=== PATIENT | female | born 2000 | race African-American/Black ===

== ENCOUNTER 2024-07-04 23:58 | Emergency (ER) | payer OTHER ==
[2024-07-05] MEDS ORDERED: NA CHLORIDE 0.9% 1,000 ML ONE (00:43)
[2024-07-05 01:36] LABS: Absolute Eosinophils 0.2 K/uL (0-0.5); Absolute Lymphocytes (CBC) 2.8 K/uL (0.7-4.9); Absolute Monocytes 0.4 K/uL (0.1-1.3); Absolute Neutrophil 4.2 K/uL (1.8-8.0); Basophils % 0.6 % (0-1.3); Eosinophils % 2.9 % (0-4.4); Hematocrit 32.8 % (36.0-45.0); Hemoglobin 10.8 g/dL (12.0-15.0); Lymphocytes % 36.9 % (15.3-44.8); MCH 27.9 pg (27.0-35.0); MCHC 32.9 g/dL (32.0-36.0); MCV 84.9 fL (80-100); MPV 6.9 fL (7.6-11.3); Monocytes % 5.4 % (3.3-12.3); Neutrophils % 54.2 % (41.7-73.7); Platelets 430 thou/uL (152-406); RBC Red Blood Cell Count 3.87 M/uL (3.86-4.86); Specific Gravity 1.028 (1.005-1.030); Sqamous Epithelial <5 /HPF (None Seen); Urine Bacteria None Seen /HPF (<20); Urine Bilirubin NEGATIVE (Negative); Urine Blood 1+ (Negative); Urine Clarity Clear (Clear); Urine Color Light-Yellow (Yellow); Urine Culture Reflex Order NOT NEEDED; Urine Glucose NEGATIVE (Negative); Urine Ketones NEGATIVE (Negative); Urine Microscopic Reflex YN ORDER UMIC; Urine Mucus Slight /HPF (None Seen); Urine Nitrite NEGATIVE (Negative); Urine Protein NEGATIVE (Negative); Urine RBC None Seen /HPF (None Seen); Urine Urobilinogen Normal (Normal); Urine WBC <5 /HPF (<5)
[2024-07-05 01:47] LABS: ALT/SGPT 20 U/L (13-56); AST/SGOT 12 U/L (15-37); Albumin 3.2 g/dL (3.4-5.0); Albumin/Globulin Ratio 0.9 (1.1-1.8); Alkaline Phosphatase 55 U/L (45-117); Anion Gap 8.7 mEq/L (5.0-15.0); BUN Blood Urea Nitrogen 13 mg/dL (7-18); Bicarbonate 26 mEq/L (21-32); Globulin 3.5 g/dL (2.3-3.5); Glomerular Filtration Rate 126 ml/min (=/>90); Glucose Level 92 mg/dL (74-106); Lipase 28 U/L (13-75); Potassium 3.7 mEq/L (3.5-5.1); Protein, Total 6.7 g/dL (6.4-8.2); Sodium Level 138 mEq/L (136-145)
[2024-07-05 01:51] LABS: Bilirubin Total < 0.2 mg/dL (0.2-1.0)
--- NOTE | 2024-07-05 02:54 | RAD REPORT ---
EXAM DESCRIPTION: CT ABDOMEN PELVIS WITH IV CONTRAST 07/05/2024 2:29 AM EXPLOSIVE EXPERT CLINICAL HISTORY: 24 years, Female, Abdominal pain. COMPARISON: None. PROCEDURE: Contrast-enhanced images of the abdomen and pelvis were performed from the lung bases to the ischial tuberosities after the administration of IV contrast. In addition multiplanar reformats in the coronal and sagittal plane were obtained and reviewed. An individualized dose optimization technique, Automated Exposure Control, was utilized for the perfo rmed procedure. FINDINGS: Lung bases: The lung bases demonstrate to be clear. Liver: The liver demonstrates to be normal, no focal lesions identified. Gallbladder: The gallbladder demonstrate to be normal. Adrenal glands: The adrenal glands demonstrate to be normal. Pancreas: The pancreas demonstrate to be normal. Spleen: The spleen demonstrate to be within normal limits. Kidneys: The kidneys demonstrate normal uptake of contrast media. There is no evidence for nephroli thiasis and/or hydronephrosis. GI: Grossly the unopacified stomach, small bowel and large bowel demonstrate to be within normal limi ts. No evidence for bowel dilatation and/or free air. The appendix was not visualized. The left-sided colon demonstrate to be decompressed with no gross abnormalities. : The urinary bladder demonstrate to be partially distended limiting diagnostic value. Genitalia: The uterus demonstrate to be within normal limits. There are normal adnexal structures. Abdominal aorta: The aorta demonstrate to be within normal limits. Retroperitoneum: There is no retroperitoneal lymphadenopathy. There is no evidence for ascites and/or abnormal fluid collections. Bones: The bony structures demonstrate to be within normal limits. No evidence for compression deform ity and/or significant skeletal lesions. Soft tissues: The soft tissues demonstrate to be unremarkable. IMPRESSION: No evidence for nephrolithiasis and/or hydronephrosis. Otherwise unremarkable CT scan of the abdomen and pelvis with contrast. Electronically signed by: Maximus Scott MD 07/05/2024 02:51 AM EXPLOSIVE EXPERT Due to temporary technical issues with the PACS/Clipboard reporting system, reports are being emerald d by the in-house radiologist without review as a courtesy to ensure prompt reporting the interpreting radiologist is fully responsible for the content of the report. Transcribed Date/Time: 07/05/2024 2:54 AM
--- NOTE | 2024-07-05 03:03 | ER ---
Nurse's Notes [facility] Name: Merline Rose Age: 24 yrs Sex: Female : 2000 Arrival Date: 07/04/2024 Time: 23:58 Bed 5 Private MD: Diagnosis: Rectal bleeding Presentation: 07/05 00:13 Chief complaint: Patient states: BLOODY STOOLS SINCE YESTERDAY. BRIGHT RED, CLOTS IN ha1 THE STOOL. HAS BEEN USING [employer] FOR TWO WEEKS. PELVIC CRAMPING. NOT FEELING WELL. 00:13 Coronavirus screen: Client denies travel out of the [place] in the last 14 days. Ebola ha1 Screen: No symptoms or risks identified at this time. Initial Sepsis Screen: Does the patient meet any 2 criteria? No. Patient's initial sepsis screen is negative. Does the patient have a suspected source of infection? No. Patient's initial sepsis screen is negative. Risk Assessment: Do you want to hurt yourself or someone else? Patient reports no desire to harm self or others. Onset of symptoms was July 05, 2024. 00:13 Method Of Arrival: Ambulatory ha1 00:13 Acuity: XENIA 3 ha1 Triage Assessment: 00:13 General: Appears comfortable, Behavior is calm, cooperative. Pain: Complains of pain in ha1 pelvis Pain does not radiate. Pain currently is 6 out of 10 on a pain scale. Quality of pain is described as aching. Neuro: Level of Consciousness is awake, alert, obeys commands, Oriented to person, place, time, situation. Cardiovascular: Capillary refill < 3 seconds Patient's skin is warm and dry. Respiratory: Airway is patent Respiratory effort is even, unlabored, Respiratory pattern is regular, symmetrical. GI: Abdomen is round non-distended, obese, Reports lower abdominal pain, rectal bleeding, bloody stool. : No signs and/or symptoms were reported regarding the genitourinary system. Derm: Skin is healthy with good turgor, Skin is moist, Skin is normal. Musculoskeletal: No signs and/or symptoms reported regarding the musculoskeletal system. Circulation, motion, and sensation intact. Range of motion: intact in all extremities. Historical: - Allergies: 00:37 No Known Allergies; ha1 - PMHx: 00:37 None; ha1 - Immunization history:: Adult Immunizations up to date. - Infectious Disease History:: Denies. - Social history:: Smoking status: Patient reports the use of cigarette tobacco products, smokes one-half pack cigarettes per day. - Family history:: not pertinent. Screenin:39 [facility] ED Fall Risk Assessment (Adult) History of falling in the last 3 months, ha1 including since admission No falls in past 3 months (0 pts) Confusion or Disorientation No (0 pts) Intoxicated or Sedated No (0 pts) Impaired Gait No (0 pts) Mobility Assist Device Used No (0 pt) Altered Elimination No (0 pt) Score/Fall Risk Level 0 - 2 = Low Risk Oriented to surroundings, Maintained a safe environment, Educated pt \T\ family on fall prevention, incl call for assistance when getting out of bed, Hourly rounding (assess needs \T\ fall precautionary measures) done. Abuse screen: Denies threats or abuse. Denies injuries from another. Nutritional screening: No deficits noted. Tuberculosis screening: No symptoms or risk factors identified. Assessment: 00:35 General: Appears in no apparent distress. uncomfortable, Behavior is calm, cooperative, ay appropriate for age. Pain: Complains of pain in abdomen Quality of pain is described as crampy, Pain began 1 day ago. Neuro: Level of Consciousness is awake, alert, obeys commands, Oriented to person, place, time, situation, Speech is normal. Cardiovascular: Capillary refill < 3 seconds. Respiratory: Airway is patent Respiratory effort is even, unlabored, Respiratory pattern is regular, symmetrical. GI: Abdomen is obese, Abd is soft Abdomen is tender to palpation in left lower quadrant Reports bloody stool, Patient currently denies nausea, vomiting. : No signs and/or symptoms were reported regarding the genitourinary system. EENT: No signs and/or symptoms were reported regarding the EENT system. Derm: No signs and/or symptoms reported regarding the dermatologic system. Musculoskeletal: No signs and/or symptoms reported regarding the musculoskeletal system. Vital Signs: 00:13 BP 135 / 100; Pulse 85; Resp 17 S; Temp 98.3(O); Pulse Ox 98% on R/A; Weight 136.08 kg; ha1 03:15 BP 128 / 94; Pulse 80; Resp 17 S; Pulse Ox 100% on R/A; ay Rachelle Coma Score: 00:35 Eye Response: spontaneous(4). Motor Response: obeys commands(6). Verbal Response: ay oriented(5). Total: 15. ED Course: 00:02 Patient arrived in ED. ra3 00:27 Gamaliel Christian MD is Attending Physician. rt 00:34 Alexandra Guerra, RN is Primary Nurse. ay 00:35 Patient has correct armband on for positive identification. Placed in gown. Bed in low ay position. Call light in reach. Side rails up X2. Provided Education on: plan of care. 00:37 Triage completed. ha1 01:01 No provider procedures requiring assistance completed. Initial lab(s) drawn, by betsy sharma sent to lab. Inserted saline lock: 20 gauge in right antecubital area, using aseptic technique. Blood collected. Flushed with 10 mL NS. Patient maintains SpO2 saturation greater than 95% on room air. 02:11 CT Abd/Pelvis - IV Contrast Only In Process Unspecified. EDMS 03:02 Danilo Serna MD is Referral Physician. rt 03:23 IV discontinued, intact, bleeding controlled, No redness/swelling at site. Pressure ay dressing applied. 03:24 Arm band placed on left wrist. ay Administered Medications: 01:01 Drug: NS 0.9% IV 1000 ml IV at 1 bolus Per protocol; to be given as a bolus over 60 bm8 minutes Route: IV; Rate: 1 bolus; Site: right antecubital; 03:32 Follow up: IV Status: Completed infusion; IV Intake: 1000ml ay Medication: 00:35 VIS not applicable for this client. ay Intake: 03:32 IV: 1000ml; Total: 1000ml. ay Outcome: 03:03 Discharge ordered by . rt 03:23 Discharged to home ambulatory, ay 03:23 Condition: stable 03:23 Discharge instructions given to patient, Instructed on discharge instructions, follow up and referral plans. Demonstrated understanding of instructions, follow-up care, 03:31 Patient left the ED. ay Signatures: Dispatcher [employer] EDMS Kylee Barclay, RN RN ha1 Gamaliel Christian MD MD rt Cindy Costa ra3 Jem Kim, RN RAUL bm8 Alexandra Guerra RN RN ay
--- NOTE | 2024-07-05 03:03 | EDPHYS ---
Physician Documentation [facility] Name: Merline Rose Age: 24 yrs Sex: Female : 2000 Arrival Date: 07/04/2024 Time: 23:58 Bed 5 Private MD: ED Physician Gamaliel Christian HPI: 07/05 03:31 This 24 yrs old Black Female presents to ER via Ambulatory with complaints of Bloody rt Stools - with vaginal cramping. 03:31 Patient presents to the ED with reported bright red bloody stools admixed in the stool rt with reported clots. The patient denies significant abdominal pain. Does report small amount of vaginal spotting and pain. Denies other acute complaints, symptoms are moderate in severity, no other aggravating or elevating factors.. Historical: - Allergies: 00:37 No Known Allergies; ha1 - PMHx: 00:37 None; ha1 - Immunization history:: Adult Immunizations up to date. - Infectious Disease History:: Denies. - Social history:: Smoking status: Patient reports the use of cigarette tobacco products, smokes one-half pack cigarettes per day. - Family history:: not pertinent. ROS: 03:31 Constitutional: Negative for fever, chills, and weight loss, Cardiovascular: Negative rt for chest pain, palpitations, and edema, Respiratory: Negative for shortness of breath, cough, wheezing, and pleuritic chest pain, MS/Extremity: Negative for injury and deformity, Skin: Negative for injury, rash, and discoloration, Neuro: Negative for headache, weakness, numbness, tingling, and seizure, 03:31 Abdomen/GI: Positive for rectal bleeding, Negative for nausea and vomiting, Exam: 03:31 Constitutional: This is a well developed, well nourished patient who is awake, alert, rt and in no acute distress. Head/Face: Normocephalic, atraumatic. Chest/axilla: Normal chest wall appearance and motion. Nontender with no deformity. No lesions are appreciated. Cardiovascular: Regular rate and rhythm with a normal S1 and S2. No gallops, murmurs, or rubs. Normal PMI, no JVD. No pulse deficits. Respiratory: Lungs have equal breath sounds bilaterally, clear to auscultation and percussion. No rales, rhonchi or wheezes noted. No increased work of breathing, no retractions or nasal flaring. Abdomen/GI: Soft, non-tender, with normal bowel sounds. No distension or tympany. No guarding or rebound. No evidence of tenderness throughout. MS/ Extremity: Pulses equal, no cyanosis. Neurovascular intact. Full, normal range of motion. Neuro: Awake and alert, GCS 15, oriented to person, place, time, and situation. Cranial nerves II-XII grossly intact. Motor strength 5/5 in all extremities. Sensory grossly intact. Cerebellar exam normal. Normal gait. Vital Signs: 00:13 BP 135 / 100; Pulse 85; Resp 17 S; Temp 98.3(O); Pulse Ox 98% on R/A; Weight 136.08 kg; ha1 03:15 BP 128 / 94; Pulse 80; Resp 17 S; Pulse Ox 100% on R/A; ay [place] Coma Score: 00:35 Eye Response: spontaneous(4). Motor Response: obeys commands(6). Verbal Response: ay oriented(5). Total: 15. MDM: 00:28 Medical Screening Exam initiated rt 03:31 Differential Diagnosis Colitis, diverticulitis, hemorrhoidal bleed. Data reviewed: rt vital signs, nurses notes, lab test result(s), radiologic studies. Consideration of Admission/Observation Escalation of care including admission/observation considered. Stable vital signs, lab work, no signs of upper GI bleed, patient does not require admission at this time, patient to follow-up with GI as an outpatient,, return precautions discussed.. Independent interpretation of the following test(s) in the Emergency Department CT Scan: My interpretation is No diverticulitis seen on interpretation of CT scan images. Care significantly affected by the following chronic conditions:. Counseling: I had a detailed discussion with the patient and/or guardian regarding the historical points, exam findings, and any diagnostic results supporting the discharge/admit diagnosis, lab results, radiology results, the need for outpatient follow up, to return to the emergency department if symptoms worsen or persist or if there are any questions or concerns that arise at home. 07/05 00:34 Order name: CBC with Diff; Complete Time: :52 rt 07/05 00:34 Order name: CMP; Complete Time: :52 rt 07/05 00:34 Order name: Lipase; Complete Time: :52 rt 07/05 00:34 Order name: Test, Urine; Complete Time: 01:52 rt 07/05 00:34 Order name: Urinalysis w/ reflexes; Complete Time: 01:52 rt 07/05 00:34 Order name: CT Abd/Pelvis - IV Contrast Only; Complete Time: 02:56 rt 07/05 00:34 Order name: IV Saline Lock; Complete Time: 01:01 rt 07/05 00:34 Order name: Labs collected and sent; Complete Time: 01:01 rt Administered Medications: 01:01 Drug: NS 0.9% IV 1000 ml IV at 1 bolus Per protocol; to be given as a bolus over 60 bm8 minutes Route: IV; Rate: 1 bolus; Site: right antecubital; 03:32 Follow up: IV Status: Completed infusion; IV Intake: 1000ml ay Disposition Summary: 07/05/24 03:03 Discharge Ordered Notes: Location: Home rt Problem: new rt Symptoms: are unchanged rt Condition: Stable rt Diagnosis - Rectal bleeding rt Followup: rt - With: Danilo Serna MD - When: 2 - 3 days - Reason: Discharge Instructions: - Discharge Summary Sheet rt - Rectal Bleeding rt Forms: - Medication Reconciliation Form rt - Antibiotic Education rt - Prescription Opioid Use rt - Patient Portal Instructions rt - Leadership Thank You Letter rt Signatures: Dispatcher [employer] Kylee Garza, RN RN ha1 Gamaliel Christian MD MD rt Jem Kim RN RN bm8 Alexandra Guerra RN ay
[2024-07-05 03:36] VITALS: TEMP 98.3
[2024-07-05 03:38] VITALS: BP 128/94; O2SAT 100
== END 2024-07-05 03:31 | disposition home or self-care (01) ==
LOC: ER 23:58
DX: K62.5 Hemorrhage of anus and rectum (principal); F17.210 Nicotine dependence, cigarettes, uncomplicated; R10.2 Pelvic and perineal pain; N93.9 Abnormal uterine and vaginal bleeding, unspecified
CPT/HCPCS: 96361; 85025; 81001; 36415; 81025; 83690; 80053; 74177; 96360; 99284; Q9967; J7030

== ENCOUNTER 2024-09-05 15:16 | Emergency (ER) | payer OTHER, SELFPAY ==
[2024-09-05 16:14] LABS: Specific Gravity > 1.030 (1.005-1.030); Sqamous Epithelial <5 /HPF (None Seen); Urine Bacteria <20 /HPF (<20); Urine Bilirubin NEGATIVE (Negative); Urine Blood Negative (Negative); Urine Clarity Clear (Clear); Urine Color Light-Yellow (Yellow); Urine Culture Reflex Order NOT NEEDED; Urine Glucose NEGATIVE (Negative); Urine Ketones NEGATIVE (Negative); Urine Micro Reflex YN NO BILL MICROSCOPIC; Urine Mucus Slight /HPF (None Seen); Urine Nitrite NEGATIVE (Negative); Urine Protein TRACE (Negative); Urine RBC <5 /HPF (None Seen); Urine Urobilinogen Normal (Normal); Urine WBC <5 /HPF (<5)
[2024-09-05 16:16] LABS: Specific Gravity 1.032 (1.005-1.030)
[2024-09-05] MEDS ORDERED: dexAMETHasone 10 MG/ML VIAL ONE (16:52)
[2024-09-05] MEDS ORDERED: KETOROLAC 30 MG/ML INJ ONE (16:52)
--- NOTE | 2024-09-05 17:56 | ER ---
Nurse's Notes [facility] Name: Merline Rose Age: 24 yrs Sex: Female : 2000 Arrival Date: 09/05/2024 Time: 15:16 Bed 5 Private MD: Diagnosis: Lumbago with sciatica, right side Presentation: 09/05 15:33 Chief complaint: Patient states: MIDDLE AND RIGHT LOWER BACK PAIN STARTED YESTERDAY. db FEELS LIKE "PINCHING". STATES WAS WORKING OUT FRIDAY AND THINGS MAY HAVE HURT IT THEN. Coronavirus screen: Client denies travel out of the [place] in the last 14 days. At this time, the client does not indicate any symptoms associated with coronavirus-19. Ebola Screen: Patient negative for fever greater than or equal to 101.5 degrees Fahrenheit, and additional compatible Ebola Virus Disease symptoms Patient denies exposure to infectious person. Patient denies travel to an Ebola-affected area in the 21 days before illness onset. No symptoms or risks identified at this time. Initial Sepsis Screen: Does the patient meet any 2 criteria? No. Patient's initial sepsis screen is negative. Does the patient have a suspected source of infection? No. Patient's initial sepsis screen is negative. Risk Assessment: Do you want to hurt yourself or someone else? Patient reports no desire to harm self or others. Onset of symptoms was September 03, 2024. 15:33 Method Of Arrival: Ambulatory db 15:33 Acuity: XENIA 3 db Triage Assessment: 15:33 General: Appears in no apparent distress. comfortable, Behavior is calm, cooperative. db Pain: Complains of pain in back. Neuro: Level of Consciousness is awake, alert, obeys commands, Oriented to person, place, time, situation. Musculoskeletal: Circulation, motion, and sensation intact. Capillary refill < 3 seconds, Range of motion: intact in all extremities. 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 - Infectious Disease History:: Denies. - Social history:: Smoking status: Patient denies any tobacco usage or history of. Screenin:24 [facility] ED Fall Risk Assessment (Adult) History of falling in the last 3 months, ap3 including since admission No falls in past 3 months (0 pts) Confusion or Disorientation No (0 pts) Intoxicated or Sedated No (0 pts) Impaired Gait No (0 pts) Mobility Assist Device Used No (0 pt) Altered Elimination No (0 pt) Score/Fall Risk Level 0 - 2 = Low Risk Oriented to surroundings, Maintained a safe environment, Educated pt \\T\\ family on fall prevention, incl call for assistance when getting out of bed, Assessed \\T\\ reinforced patient's understanding of fall precautions, Hourly rounding (assess needs \\T\\ fall precautionary measures) done, Used ambulatory aids as needed (educated on \\T\\ assisted with). Abuse screen: Denies threats or abuse. Nutritional screening: No deficits noted. Tuberculosis screening: No symptoms or risk factors identified. Assessment: 16:23 General: Appears uncomfortable, Behavior is calm, cooperative. Pain: Complains of pain ap3 in low back area Pain currently is 6 out of 10 on a pain scale. Pain began 2-3 days ago. Pain: Alleviated by rest, Aggravated by increased activity, repositioning. Neuro: Level of Consciousness is awake, alert, obeys commands, Oriented to person, place, time, situation, Appropriate for age Speech is normal. Cardiovascular: Patient's skin is warm and dry. Respiratory: Airway is patent Respiratory effort is even, unlabored, Respiratory pattern is regular, symmetrical. Musculoskeletal: Reports pain in low back area. Vital Signs: 15:33 BP 134 / 86; Pulse 80; Resp 16; Temp 98.5; Pulse Ox 100% ; Weight 131.54 kg; Height 5 db ft. 5 in. ; 18:11 BP 128 / 74; Pulse 72; Resp 18; Pulse Ox 100% on R/A; ap3 15:33 Body Mass Index 48.26 (131.54 kg, 165.1 cm) db ED Course: 15:18 Patient arrived in ED. al6 15:33 Arm band placed on Patient placed in an exam room. db 15:36 Triage completed. db 15:37 Kishor Hernández RN is Primary Nurse. jl7 15:38 Osito Kaur PA is PHCP. cp 15:38 Osito Ramsey MD is Attending Physician. cp 16:24 Patient has correct armband on for positive identification. Bed in low position. Call ap3 light in reach. 18:11 Provided Education on: discharge instructions. ap3 18:11 No provider procedures requiring assistance completed. Patient did not have IV access ap3 during this emergency room visit. Administered Medications: 16:57 Drug: Dexamethasone IM 10 mg IM once Route: IM; Site: right vastus lateralis; ap3 18:04 Follow up: Response: No adverse reaction; Pain is decreased ap3 16:58 Drug: Ketorolac IM 60 mg IM once Route: IM; Site: right vastus lateralis; ap3 18:04 Follow up: Response: No adverse reaction; Pain is decreased ap3 Medication: 18:12 VIS not applicable for this client. ap3 Outcome: 17:55 Discharge ordered by MD. cp 18:11 Discharged to home ambulatory, ap3 18:11 Condition: good 18:11 Discharge instructions given to patient, Instructed on discharge instructions, follow up and referral plans. medication usage, Demonstrated understanding of instructions, follow-up care, medications, Prescriptions given X 3, 18:12 Patient left the ED. ap3 Signatures: Osito Kaur PA PA cp Leal, Jahala, RN RN jl7 Cornelia Castro RN RN ap3 Salma Lindsey, RN RN db Demi Olvera Corrections: (The following items were deleted from the chart) 15:36 15:33 Chief complaint: Patient states: MIDDLE AND RIGHT LOWER BACK PAIN STARTED db YESTERDAY. FEELS LIKE "PINCHING". STATES WAS WORKING OUT FRIDAY AND THINGS MAY HAVE HURT IT THEN db 15:36 15:33 Pulse 80bpm; Resp 16bpm; Pulse Ox 100%; Temp 98.5F; 131.54 kg; Height 5 ft. 5 db in.; BMI: 48.2; db
--- NOTE | 2024-09-05 17:56 | EDPHYS ---
Physician Documentation [facility] Name: Merline Rose Age: 24 yrs Sex: Female : 2000 Arrival Date: 09/05/2024 Time: 15:16 Bed 5 Private MD: ED Physician Osito Ramsey HPI: 09/05 15:45 This 24 yrs old Black Female presents to ER via Ambulatory with complaints of Back Pain.cp 15:45 The patient presents with pain that is acute. The symptoms are located in the lumbar cp area and right low back and right hip. Onset: The symptoms/episode began/occurred yesterday, and became worse today. The pain radiates to the right buttock and right upper leg. Associated signs and symptoms: The patient has no apparent associated signs or symptoms. The problem was sustained after heavy work out. 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 - Infectious Disease History:: Denies. - Social history:: Smoking status: Patient denies any tobacco usage or history of. ROS: 15:50 Constitutional: Negative for body aches, chills, fever, poor PO intake, cp 15:50 Cardiovascular: Negative for chest pain, palpitations, cp 15:50 Respiratory: Negative for cough, shortness of breath, wheezing, 15:50 Abdomen/GI: Negative for abdominal pain, nausea, vomiting, and diarrhea, constipation, bowel incontinence, 15:50 Back: Positive for pain at rest, pain with movement, of the lumbar area and right low back and right hip, 15:50 : Negative for urinary symptoms, hematuria, difficulty urinating, bladder incontinence, 15:50 Neuro: Negative for altered mental status, dizziness, headache, numbness, weakness, 15:50 All other systems are negative, Exam: 15:55 Constitutional: The patient appears in no acute distress, alert, awake, non-toxic, well cp developed, well nourished, uncomfortable, 15:55 Head/Face: Normocephalic, atraumatic. cp 15:55 Neck: ROM/movement: is normal, is supple, without pain, no range of motions limitations, 15:55 Chest/axilla: Inspection: normal, 15:55 Cardiovascular: Rate: normal, 15:55 Respiratory: the patient does not display signs of respiratory distress, Respirations: normal, no use of accessory muscles, no retractions, labored breathing, is not present, Breath sounds: are clear throughout, no decreased breath sounds, no stridor, no wheezing, 15:55 Abdomen/GI: Inspection: obese Palpation: abdomen is soft and non-tender, in all quadrants, 15:55 Back: pain, that is moderate, of the lumbar area and right low back, ROM is painful, with all movement, 15:55 Neuro: Orientation: to person, place \T\ time. Mentation: is normal, Motor: moves all fours, strength is normal, Sensation: no obvious gross deficits, Gait: is steady, Deep tendon reflexes are 2+ (normal) in the right patellar, right Achilles, left patellar and left Achilles, Vital Signs: 15:33 BP 134 / 86; Pulse 80; Resp 16; Temp 98.5; Pulse Ox 100% ; Weight 131.54 kg; Height 5 db ft. 5 in. ; 18:11 BP 128 / 74; Pulse 72; Resp 18; Pulse Ox 100% on R/A; ap3 15:33 Body Mass Index 48.26 (131.54 kg, 165.1 cm) db MDM: 15:38 Medical Screening Exam initiated cp 17:55 Data reviewed: vital signs, nurses notes, and as a result, I will discharge patient. 17:55 Differential diagnosis: ruptured disc, spinal injury, Ureterolithiasis vertebral cp fracture. I considered the following discharge prescriptions or medication management in the emergency department Medications were administered in the Emergency Department. See MAR. Counseling: I had a detailed discussion with the patient and/or guardian regarding the historical points, exam findings, and any diagnostic results supporting the discharge/admit diagnosis, to return to the emergency department if symptoms worsen or persist or if there are any questions or concerns that arise at home. Response to treatment: the patient's symptoms have mildly improved after treatment, and as a result, I will discharge patient. 09/05 15:39 Order name: Urinalysis W/Microscopic; Complete Time: 16:25 cp 09/05 15:39 Order name: Test, Urine; Complete Time: 16:25 cp Administered Medications: 16:57 Drug: Dexamethasone IM 10 mg IM once Route: IM; Site: right vastus lateralis; ap3 18:04 Follow up: Response: No adverse reaction; Pain is decreased ap3 16:58 Drug: Ketorolac IM 60 mg IM once Route: IM; Site: right vastus lateralis; ap3 18:04 Follow up: Response: No adverse reaction; Pain is decreased ap3 Disposition: 09/06 18:03 Chart complete. cp Disposition Summary: 09/05/24 17:55 Discharge Ordered Notes: Location: Home cp Problem: new cp Symptoms: have improved cp Condition: Stable cp Diagnosis - Lumbago with sciatica, right side cp Followup: cp - With: Private Physician - When: 2 - 3 days - Reason: Recheck today's complaints Discharge Instructions: - Discharge Summary Sheet cp - Acute Back Pain, Adult cp - Sciatica cp - Back Exercises cp - Form - Return To Work cp Forms: - Medication Reconciliation Form cp - Antibiotic Education cp - Prescription Opioid Use cp - Patient Portal Instructions cp - Leadership Thank You Letter cp Prescriptions: - Anaprox DS 550 mg Oral Tablet - take 1 tablet ORAL route every 12 hours As needed; 20 tablet; Refills: 0, cp Product Selection Permitted - Medrol (Jesus Alberto) 4 mg Oral Tablets, Dose Pack - take 1 tablet ORAL route as directed - follow package instructions; 1 packet; cp Refills: 0, Product Selection Permitted - methocarbamol 750 mg Oral tablet - take 1 tablet ORAL route 3 times per day; 30 tablet; Refills: 0, Product cp Selection Permitted Signatures: Dispatcher [employer] Osito Corcoran PA PA cp Cornelia Castro RN RN ap3 Salma Lindsey RN RN db
[2024-09-05 18:37] VITALS: TEMP 98.5; O2SAT 100
[2024-09-05 18:38] VITALS: BP 128/74
== END 2024-09-05 18:12 | disposition home or self-care (01) ==
LOC: ER 15:16
DX: M54.41 Lumbago with sciatica, right side (principal)
CPT/HCPCS: 81001; 81025; 96372; 99284; J1100

== ENCOUNTER 2025-03-19 09:52 | Emergency (ER) | payer OTHER, BC ==
--- OUTSIDE RECORDS SUMMARY | 2025-03-19 09:58 | XMS REPORT | Continuity of Care Document ---
Author Name Unknown Address [address] [facility] [address] [place] [address] [facility] [place] Address [address] [facility] [address] [place] [address] Care Team Providers Care Bench Worker Name Role Phone PCP, PATIENT DOES NOT HAVE A Primary Care Physic ifeanyi Unavailable Austin Bosch Attending Clinician Unavailable Biju Daniel Attending Clinician Unavailable NGUYEN WEST Attending Clinician Unavailab Nguyen Galaviz DO Attending Clinician [phone] FREDDIE PHIPPS Attending Clinician Unavailable Freddie Castellanos Attending Clinician [phone] Lady Townsend Attending Clinician [phone] GC_SEFP_Rivera_A Attending Clinician Unavailable LADY PICHARDO Attending Clinician Unavailable HOLDEN ESQUEDA Attending Clinician Unavaila MUNIRA Gao Attending Clinician Unavailable Lab, Adc Fam Pob I Attending Clinician Unavailab Munira Somers Attending Clinician [phone] Ye Thayer Attending Clinician [phone] Doctor Unassigned, [place] Attending Clinician U navailable Physician, No Primary or Family Admitting Clinic ifeanyi Unavailable GC_SEFP_Rivera_A Admitting Clinician Unavailable Payers Payer Name Policy Type Policy Number Effective Date Expirati on Date Source [facility] [id number] 2021 00:00:00 [facility] [place] [facility] [id number] 2020 00:00:00 [place] [id number] 2020 00:00:00 Problems Condition Name Condition Details Condition Category Status Onset Date Resolution Date Last Treatment Date Treating Clinician Comments Source Boil Boil Disease Active 07-29 00:00: 00 [facility] Well woman exam Well woman exam Disease Active 03-26 00:00: 00 [facility] Encounter for other general counseling or advice on contracept ion Encounter for other general counseling or advice on contracept ion Disease Active 03-26 00:00: 00 [facility] Morbid obesity due to excess calories Morbid obesity due to excess calories Disease Active 03-26 00:00: 00 [facility] History of anxiety History of anxiety Disease Active 03-26 00:00: 00 [facility] History of depression History of depression Disease Active 03-26 00:00: 00 [facility] Allergies, Adverse Reactions, Alerts Allergy Name Allergy Type Status Severity Reaction(s) Onset Date Inactive Date Treating Clinician Comments Source No Known Allergie s DA Active U 07-09 00:00: 00 [facility] NO KNOWN ALLERGIE S Drug Class Active [facility] Social History Social Habit Start Date Stop Date Quantity Comments Source History of tobacco use Cigarette Smoker [facility] Exposure to SARS-CoV-2 (event) 2022-09-17 00:00:00 2022-09-27 11:37:00 Not sure [facility] Alcohol intake 2022-09-27 00:00:00 2022-09-27 00:00:00 Current non-drinker of alcohol (finding) [facility] Cigarettes smoked current (pack per day) - Reported 2022-01-20 00:00:00 2022-01-20 00:00:00 [facility] Tobacco Comment 2022-01-20 00:00:00 2022-01-20 00:00:00 started smoking 1 yr, vapes [facility] Tobacco use and exposure 2022-01-20 00:00:00 2022-01-20 00:00:00 Smokeless tobacco non-user [facility] Sex Assigned At 2000 00:00:00 2000 00:00:00 [facility] Smoking Status Start Date Stop Date Source Smokes tobacco daily 2022-01-20 00:00:00 [facility] Medications Ordered Medication Name Filled Medication Name Start Date Stop Date Current Medication? Ordering Clinician Indication Dosage Frequency Signature (SIG) Comments Components Source ondansetron (ZOFRAN (PF)) injection 4 mg 09-27 19:15: 00 09-27 19:06 :00 No 4mg 4 mg, Slow IV Push, ONCE, 1 dose, [facility] Fri09/27/22 [facility] 1415[facility] NaCl 0.9% (NS) bolus infusion 1,000 mL 09-27 17:45: 00 09-27 19:39 :00 No 1000mL at 999 mL/hr, 1,000 mL, IV Infusion, ONCE, 1 dose, On Fri09/27/22 at 1245, [facility] haloperidol lactate (HALDOL) injection 2.5 mg 09-27 17:00: 00 09-27 17:32 :00 No 2.5mg 2.5 mg, Intravenou s, ONCE, 1 dose, On Fri09/27/22 at 1200, STAT [facility] metoclopram miracle HCl (REGLAN) injection 10 mg 09-27 17:00: 00 09-27 17:32 :00 No 10mg 10 mg, Slow IV Push, ONCE, 1 dose, On Fri09/27/22 at 1200, [facility] ondansetron 4 mg disintegrat ing tablet 09-27 00:00: 00 Yes [id number] 4mg Take 1 tablet by mouth every 8 (eight) hours as needed for Nausea and Vomiting (N/V). [facility] molnupiravi r 200 mg capsule 01-20 00:00: 00 Yes [id number] 800mg Take 4 capsules by mouth every 12 (twelve) hours. [facility] MUCUS DM MAX ER 60-1,200 mg Tb12 11-27 00:00: 00 Yes [facility] ondansetron (ZOFRAN-ODT ) disintegrat ing tablet 4 mg 03-12 04:15: 00 03-12 03:18 :00 No 4mg 4 mg, Oral, ONCE, 1 dose, [facility] 03/11/19 at 2315, Routine [facility] NaCl 0.9% (NS) bolus infusion 1,000 mL 03-12 03:30: 00 03-12 04:18 :00 No 1000mL at 999 mL/hr, 1,000 mL, IV Infusion, ONCE, 1 dose, [facility] 03/11/19 at 2230, STAT [facility] ondansetron (ZOFRAN ODT) 4 mg disintegrat ing tablet 03-11 00:00: 00 Yes [id number] 4mg Take 1 tablet by mouth every 8 (eight) hours as needed for Nausea and Vomiting (N/V). [facility] docusate (COLACE) 100 mg capsule 03-11 00:00: 00 03-22 04:59 :00 No [id number] 100mg Take 1 capsule by mouth 2 (two) times daily for 10 days. [facility] medroxyPROG ESTERone (DEPO-PROVE RA) injection 150 mg 12-17 21:30: 00 11-17 21:29 :00 No [id number] 150mg [facility] DULoxetine 60 mg capsule 12-17 20:49: 27 Yes 60mg Take 60 mg by mouth daily. [facility] busPIRone 5 mg tablet 12-17 20:49: 27 Yes 5mg Take 5 mg by mouth 2 (two) times daily. [facility] TRAZODONE/D IETARY SUPP. NO.8 (TRAZAMINE ORAL) 12-17 20:49: 27 Yes Take by mouth. [facility] DULoxetine 60 mg capsule 12-17 15:49: 27 Yes 60mg Take 60 mg by mouth daily. [facility] busPIRone 5 mg tablet 12-17 15:49: 27 Yes 5mg Take 5 mg by mouth 2 (two) times daily. [facility] TRAZODONE/D IETARY SUPP. NO.8 (TRAZAMINE ORAL) 12-17 15:49: 27 Yes Take by mouth. [facility] Vital Signs Vital Name Observation Time Observation Value Comments Gabbie lafleur Systolic blood pressure 2022-09-27 18:00:00 153 mm[Hg] [facility] Diastolic blood pressure 2022-09-27 18:00:00 93 mm[Hg] [facility] Heart rate 2022-09-27 18:00:00 82 /min [facility] Respiratory rate 2022-09-27 18:00:00 17 /min [facility] Oxygen saturation in Arterial blood by Pulse oximetry 2022-09-27 18:00:00 98 /min [facility] Body temperature 2022-09-27 16:38:00 37.22 Sherice [facility] Body height 2022-09-27 16:38:00 165.1 cm [facility] Body weight 2022-09-27 16:38:00 129.275 kg [facility] BMI 2022-09-27 16:38:00 47.43 kg/m2 [facility] Systolic blood pressure 2022-01-20 20:33:00 138 mm[Hg] [facility] Diastolic blood pressure 2022-01-20 20:33:00 94 mm[Hg] [facility] Heart rate 2022-01-20 20:33:00 82 /min [facility] Body temperature 2022-01-20 20:33:00 36.67 Sherice [facility] Respiratory rate 2022-01-20 20:33:00 18 /min [facility] Body height 2022-01-20 20:33:00 165.1 cm [facility] Body weight 2022-01-20 20:33:00 133.72 kg [facility] BMI 2022-01-20 20:33:00 49.06 kg/m2 [facility] Oxygen saturation in Arterial blood by Pulse oximetry 2022-01-20 20:33:00 98 /min [facility] Systolic blood pressure 2019-03-12 04:00:00 160 mm[Hg] [facility] Diastolic blood pressure 2019-03-12 04:00:00 109 mm[Hg] [facility] Heart rate 2019-03-12 04:00:00 87 /min [facility] Respiratory rate 2019-03-12 04:00:00 17 /min [facility] Oxygen saturation in Arterial blood by Pulse oximetry 2019-03-12 04:00:00 100 /min [facility] Body temperature 2019-03-12 02:57:00 37.17 Sherice [facility] Body height 2019-03-12 02:57:00 165.1 cm [facility] Body weight 2019-03-12 02:57:00 113.399 kg [facility] BMI 2019-03-12 02:57:00 41.60 kg/m2 [facility] Procedures Procedure Date / Time Performed Performing Clinician Source POCT TEST 2022-09-27 17:25:00 Lorin West ra [facility] LIPASE 2022-09-27 17:24:00 [facility] 2022-09-27 17:24:00 Nguyen West [facility] COMP. METABOLIC PANEL ([id number]) 2022-09-27 17:24:00 Nguyen West [facility] CBC WITH DIFF 2022-09-27 17:24:00 [facility] URIN[facility] 2022-09-27 17:24:00 Nguyen West [facility] NOTICE OF PRIVACY PRACTICES 2022-09-27 16:17:39 Doctor Unassigned, [place] [facility] CONSENT/REFUSAL FOR DIAGNOSIS AND TREATMENT 2022-09-27 16:17:08 Doctor Unassigned, [place] [facility] POCT SARS-COV-2 ANTIGEN (BINAX NOW) 2022-01-20 20:45:00 Lady Pichardo [facility] XR ABDOMEN ACUTE SERIES 2019-03-12 03:49:16 Franklin Trotter [facility] LIPASE 2019-03-12 03:24:00 Ye Trotter [facility] COMP. METABOLIC PANEL ([id number]) 2019-03-12 03:24:00 Ye Trotter [facility] CBC WITH DIFFERENTIAL 2019-03-12 03:24:00 Sven Trotter [facility] URINALYSIS 2019-03-12 03:24:00 [facility] POCT TEST 2019-03-12 03:22:00 Ye Trotter [facility] CONSENT/REFUSAL FOR DIAGNOSIS AND TREATMENT 2019-03-12 02:47:43 Doctor Unassigned, [place] [facility] Encounters Start Date/Time End Date/Time Encounter Type Admission Type Attending Clinicians Care Facility Care Department Encounter ID Source 2024-08-23 21:17:00 Inpatient Austin Bosch [facility] [id number] 78 [facility] 2024-07-09 21:15:00 2024-07-09 22:34:00 Emergency EM Biju Daniel [facility] [id number] 11 [facility] 2022-09-27 11:40:00 2022-09-27 15:27:00 Emergency X [facility]EN [facility] E[facility] [id number] [facility] 2022-09-27 11:40:00 2022-09-27 15:27:00 Emergency Nguyen West [facility] [id number] [id number] [id number] [facility] 2022-01-20 15:20:00 2022-01-20 16:07:30 Outpatient FREDDIE KOHLI [facility] [id number] [facility] 2022-01-20 15:20:00 2022-01-20 15:40:00 Urgent Care Freddie Phipps C[facility] 1..840.114 350.1.13.10 4.2.7.2.686 [id number] [facility] 2021-06-30 18:45:00 2021-06-30 18:45:00 Outpatient R LADY PICHARDO [facility] [id number] [facility] 2021-06-06 09:00:00 2021-06-06 09:00:00 Outpatient R YIN PADILLAANNABELLA [facility] [id number] [facility] 2020-09-28 10:20:00 2020-09-28 10:20:00 Outpatient R MUNIRA JEAN [facility] [id number] [facility] 2020-09-22 16:20:00 2020-09-22 16:20:00 Outpatient R [facility] [id number] [facility] 2020-09-13 08:56:13 2020-09-13 09:16:13 Laboratory Only Lab, Adc Fam Pob I Munira Jean Baptiste [facility] [id number] [id number] 4.2.7.2.686 [id number] [facility] 2020-09-13 09:00:00 2020-09-13 09:00:00 Outpatient R MUNIRA JEAN [facility] [id number] [facility] 2019-03-11 22:00:33 2019-03-11 23:22:00 Emergency Ye Trotter [facility] [id number] [id number] 4.2.7.2.686 [id number] [facility] 2019-03-11 00:00:00 2019-03-11 00:00:00 Orders Only Doctor Unassigned, [place] [facility] [id number] 350.1.13.10 4.2.7.2.686 [id number] [facility] 2017-11-07 00:00:00 2017-11-07 00:00:00 Outpatient [facility] [id number] [facility] 2017-08-08 09:36:31 2017-08-08 09:36:31 Outpatient [facility] [id number] [facility] Results Test Description Test Time Test Comments Results Result Co mments Source [facility] MET[facility]OLIC PANEL ([id number])2022-09-27 17:58:55* Test Item Value Reference Range Interpretation Comme nts NA (test code = 2035611533) 140 mmol/L 135-145 K (test code = 5782918069) 4.2 mmol/L 3.5-5.0 CL (test code = 4499417467) 104 mmol/L 98-108 CO2 TOTAL (test code = 9186342549) 28 mmol/L 23-31 AGAP (test code = 6170704377) 8 2-16 BUN (test code = 4151237113) 13 mg/dL 7-23 GLUCOSE (test code = 2437293339) 125 mg/dL 70-110 H CREATININE (test code = 8663047012) 0.66 mg/dL 0.50-1.04 TOTAL BILI (test code = 0315693227) 0.4 mg/dL 0.1-1.1 CALCIUM (test code = 7383479721) 9.1 mg/dL 8.6-10.6 T PROTEIN (test code = 0969663333) 7.5 g/dL 6.3-8.2 ALBUMIN (test code = 7380199029) 4.4 g/dL 3.5-5.0 ALK PHOS (test code = 8797694529) 51 U/L 34-122 ALTv (test code = 1742-6) 27 U/L 5-35 AST(SGOT) (test code = 7302968395) 24 U/L 13-40 eGFR (test code = 2588519414) 112.0 mL/min/1.73m2 JULIO (test code = JULIO) Association of Glomerular Filtration Rate (GFR) and Staging of Kidney Disease* + --+ --+ ------+| GFR (mL/min/1.73 m2) ?| With Kidney Damage ?| ?Without Kidney Damage+ --------+ --------+ +| ?>90 ?| ?Stage one ?| ? Normal ?+ ---+ ---+ -------+| ?60-89 ?| ?Stage two ?| ? Decreased GFR ? + --+ --+ ------+| ?30-59 ?| ?Stage three ?| ? Stage three ? + --+ --+ ------+| ?15-29 ?| ?Stage four ? | ? Stage four ?+ ---+ ---+ -------+| ?<15 (or dialysis) ? ?| ?Stage five ? | ? Stage five ?+ ---+ ---+ -------+ *Each stage assumes the associated GFR level has been in effect for at least three months. ?Stages 1 to 5, with or without kidney disease, indicate chronic kidney disease. Notes: Determination of stages one and two (with eGFR >59mL/min/1.73 m2) requires estimation of kidney damage for at least three months as defined by structural or functional abnormalities of the kidney, manifested by either:Pathological abnormalities or Markers of kidney damage (including abnormalities in the composition of the blood or urine or abnormalities in imaging tests). Lab Interpretation (test code = 89074-7) Abnormal [facility] 17:58:40* Test Item Value Reference Range Interpretation Comme nts LIPASE (test code = 6284953250) 49 U/L 0-220 Lab Interpretation (test cod e = 47422-2) Normal [facility] WITH [id number] 17:45:15* Test Item Value Reference Range Interpretation Comme nts WBC (test code = 6690-2) 7.30 See_Comment [Automated [employer]] The system which generated this result transmitted reference range: 4.30 - 11.10 10*3/?L. The reference range was not used to interpret this result as normal/abnormal. RBC (test code = 789-8) 4.57 See_Comment [Automated [employer]] The system which generated this result transmitted reference range: 3.93 - 5.25 10*6/?L. The reference range was not used to interpret this result as normal/abnormal. HGB (test code = 718-7) 12.8 g/dL 11.6-15.0 HCT (test code = 4544-3) 39.5 % 35.7-45.2 MCV (test code = 787-2) 86.4 fL 80.6-95.5 MCH (test code = 785-6) 28.0 pg 25.9-32.8 MCHC (test code = 786-4) 32.4 g/dL 31.6-35.1 RDW-SD (test code = 71323-2) 41.2 fL 39.0-49.9 RDW-CV (test code = 788-0) 13.2 % 12.0-15.5 PLT (test code = 777-3) 399 See_Comment H [Automated messa ge] The system which generated this result transmitted reference range: 166 - 358 10*3/?L. The reference range was not used to interpret this result as normal/abnormal. MPV (test code = 12451-2) 9.0 fL 9.5-12.9 L NRBC/100 WBC (test code = 3679538722) 0.0 See_Comment [Automated [employer]] The system which generated this result transmitted reference range: 0.0 - 10.0 /100 WBCs. The reference range was not used to interpret this result as normal/abnormal. NRBC x10^3 (test code = 1887157121) See_Comment [Automated [employer]] The system which generated this result transmitted reference range: 10*3/?L. The reference range was not used to interpret this result as normal/abnormal. GRAN MAT (NEUT) % (test code = 770-8) 81.7 % IMM GRAN % (test code = 7034483897) 0.40 % LYMPH % (test code = 736-9) 13.3 % MONO % (test code = 5905-5) 3.8 % EOS % (test code = 713-8) 0.1 % BASO % (test code = 706-2) 0.7 % GRAN MAT x10^3(ANC) (test code = 7271593172) 5.96 10*3/uL 1.88-7.09 IMM GRAN x10^3 (test code = 1058184012) 0.03 10*3/uL 0.00-0.06 LYMPH x10^3 (test code = 731-0) 0.97 10*3/uL 1.32-3.29 L MONO x10^3 (test code = 742-7) 0.28 10*3/uL 0.33-0.92 L EOS x10^3 (test code = 711-2) 0.03-0.39 L BASO x10^3 (test code = 704-7) 0.05 10*3/uL 0.01-0.07 Lab Interpretation (test code = 01759-5) Abnormal [facility] [id number] 17:25:00* Test Item Value Reference Range Interpretation Comme nts POCT PREG (test code = 1605) negative On board controls acceptable with C Line (test code = 3574) present POCT PREG LOT # (test code = 3575) [id number] POCT PREG TEST DATE ( test code = 3576) 07/30/2023 Lab Interpretation (test cod e = 56759-9) Normal [facility] SARS-COV-2 ANTIGEN (BINAX NOW)2022-01-20 20:45:00* Test Item Value Reference Range Interpretation Comme [facility] POCT SARS-COV-2 ANTIGEN (wil t code = 5076) Positive Not Detected A On board controls acceptable with C Line (test code = 3574) Yes Lab Interpretation (test cod e = 67788-2) Abnormal [facility] ABDOMEN ACUTE [id number] 03:58:18No acute abnormalities in the chest or abdomen. A moderate amount of gas and stool in the colon andrectum, which can beseen with constipation. IMelissa MD., have reviewed this study and agree with the abovereport.* * * * * * * * ORIGINAL REPORT * * * * * * * *EXAM: XR ABDOMEN ACUTE SERIES HISTORY: Constipation with nausea and vomiting COMPARISON: None. FINDINGS: The lungs are clear. No pleural effusion or pneumothorax is identified. Theheart is normal in size. No subdiaphragmatic free air is identified on the upright view. The bowelgas pattern is normal. A moderate amount of gas and stool are seen in thecolon and rectum. No calcified stones or opaque masses are seen. The osseous structures areunremarkable. [facility], Radiant Results Inft User - 03/11/2019 10:58 PM CDT* * * * * * * * ORIGINAL REPORT * * * * * * * *EXAM: XR ABDOMEN ACUTE SERIESHISTORY: Constipation with nausea and vomiting COMPARISON: None.FINDINGS:The lungs are clear. No pleural effusion or pneumothorax is identified. Theheart is normal in size. No subdiaphragmatic free air is identified on the upright view. The bow elgas pattern is normal. A moderate amount of gas and stool are seen in thecolon and rectum.No calcified stones or opaque masses are seen. The osseous structures areunremarkable. IMPRESSIONNo acute abnormalities in the chest or abdomen.A moderate amount of gas and stool in the colon and rectum, which can beseen with constipation.I, Sophia Mart MD., have reviewed this study and agree with the abovereport.[facility]. METABOLIC PANEL (46875) 2019-03-12 03:53:00* Test Item Value Reference Range Interpretation Comme nts NA (test code = 8691390302) 143 mmol/L 135-145 K (test code = 2709206233) 3.4 mmol/L 3.5-5 L CL (test code = 9916135405) 104 mmol/L 98-108 CO2 TOTAL (test code = 4803518503) 27 mmol/L 23-31 AGAP (test code = 4547863960) 2-16 BUN (test code = 5518664588) 13 mg/dL 7-23 GLUCOSE (test code = 6041805957) 115 mg/dL 70-110 H CREATININE (test code = 3315460374) 0.66 mg/dL 0.5-1.04 TOTAL BILI (test code = 2359403784) 0.5 mg/dL 0.1-1.1 CALCIUM (test code = 7996718402) 9.4 mg/dL 8.6-10.6 T PROTEIN (test code = 2187750955) 8.3 g/dL 6.3-8.2 H ALBUMIN (test code = 1102498515) 4.7 g/dL 3.5-5 ALK PHOS (test code = 0310342891) 56 U/L 34-122 ALT(SGPT) (test code = 0208841378) 22 U/L 9-51 AST(SGOT) (test code = 0613432706) 44 U/L 13-40 H eGFR Calculation (Non-) (test code = 9002562567) mL/min/1.73m2 eGFR Calculation () (test code = 5409968101) mL/min/1.73m2 JULIO (test code = JULIO) Association of Glomerular Filtration Rate (GFR) and Staging of Kidney Disease*+ + + +| GFR (mL/min/1.73 m2)?| With Kidney Damage?|?Without Kidney Damage+ --------+ --------+ +|?>90?|?S tage one?|? Normal?+ ---------+ ---------+ +|?60-89? |?Stage two?|? Decreased GFR? + --+ --+ ------+|?30-59?|?Stage three?|? Stage three? + --+ --+ ------+|?15-29?|?Stage four? |? Stage four?+ -------+ -------+ +|?<15 (or dialysis)?|?Stage five? |? Stage five?+ -------+ -------+ +*Each stage assumes the associated GFR level has been in effect for at least three months.?Stages 1 to 5, with or without kidney disease, indicate chronic kidney disease.Notes: Determination of stages one and two (with eGFR >59mL/min/1.73 m2) requires estimation of kidney damage for at least three months as defined by structural or functional abnormalities of the kidney, manifested by either:Pathological abnormalities or Markers of kidney damage (including abnormalities in the composition of the blood or urine or abnormalities in imaging tests). Lab Interpretation (test code = 32597-6) [facility] 03:53:00* Test Item Value Reference Range Interpretation Comme nts LIPASE (test code = 1485234090) 83 U/L 0-220 Lab Interpretation (test cod e = 87308-5) Normal [facility]2019-09-13 03:48:00* Test Item Value Reference Range Interpretation Comme nts APPEARANCE (test code = 0067157775) Clear Clear COLOR (test code = 5576995487) Yellow Yellow PH (test code = 7716829295) 4.8-8.0 SP GRAVITY (test code = 2029479016) 1.003-1.030 GLU U QUAL (test code = 7167263736) Negative Negative BLOOD (test code = 9589298408) Small Negative A KETONES (test code = 4452625519) Negative Negative PROTEIN (test code = 2887-8) Negative Negative UROBILIN (test code = 0664241604) 0.2 mg/dL See_Comment [Automated messa ge] The system which generated this result transmitted reference range: 0-1.0 mg/dL. The reference range was not used to interpret this result as normal/abnormal. BILIRUBIN (test code = 8992598943) Negative Negative NITRITE (test code = 8473328464) Negative Negative LEUK SOY (test code = 6637102888) Negative Negative RBC/HPF (test code = 0983209055) See_Comment H [Automated messa ge] The system which generated this result transmitted reference range: 0 - 3 HPF. The reference range was not used to interpret this result as normal/abnormal. WBC/HPF (test code = 1075124578) See_Comment [Automated messa ge] The system which generated this result transmitted reference range: 0 - 5 HPF. The reference range was not used to interpret this result as normal/abnormal. BACTERIA (test code = 9992468855) Many Negative A AMORPHOUS (test code = 2005493189) Moderate Rare HPF A SQ EPITH (test code = 6728098559) HPF Lab Interpretation (test code = 04735-3) Abnormal [facility] WITH [id number] 03:35:00* Test Item Value Reference Range Interpretation Comme nts WBC (test code = 6690-2) See_Comment H [Automated messa ge] The system which generated this result transmitted reference range: 4.30 - 11.10 10*3/?L. The reference range was not used to interpret this result as normal/abnormal. RBC (test code = 789-8) See_Comment [Automated messa ge] The system which generated this result transmitted reference range: 3.93 - 5.25 10*6/?L. The reference range was not used to interpret this result as normal/abnormal. HGB (test code = 718-7) 12.5 g/dL 11.6-15 HCT (test code = 4544-3) 39.5 % 35.7-45.2 MCV (test code = 787-2) 88.6 fL 80.6-95.5 MCH (test code = 785-6) 28.0 pg 25.9-32.8 MCHC (test code = 786-4) 31.6 g/dL 31.6-35.1 RDW-SD (test code = 09364-7) 44.4 fL 39-49.9 RDW-CV (test code = 788-0) 13.7 % 12-15.5 PLT (test code = 777-3) See_Comment H [Automated [employer]] The system which generated this result transmitted reference range: 166 - 358 10*3/?L. The reference range was not used to interpret this result as normal/abnormal. MPV (test code = 31817-8) 8.9 fL 9.5-12.9 L NRBC/100 WBC (test code = 4033509545) See_Comment [Automated [employer] ssage] The system which generated this result transmitted reference range: 0.0 - 10.0 /100 WBCs. The reference range was not used to interpret this result as normal/abnormal. NRBC x10^3 (test code = 3646290089) <0.01 See_Comment [Automated [employer]] The system which generated this result transmitted reference range: 10*3/?L. The reference range was not used to interpret this result as normal/abnormal. GRAN MAT (NEUT) % (test code = 770-8) 65.6 % IMM GRAN % (test code = 7651016295) 0.50 % LYMPH % (test code = 736-9) 24.0 % MONO % (test code = 5905-5) 8.8 % EOS % (test code = 713-8) 0.5 % BASO % (test code = 706-2) 0.6 % GRAN MAT x10^3(ANC) (test code = 5959099005) 8.10 10*3/uL 1.88-7.09 H IMM GRAN x10^3 (test code = 4762508217) 0.06 10*3/uL 0-0.06 LYMPH x10^3 (test code = 731-0) 2.96 10*3/uL 1.32-3.29 MONO x10^3 (test code = 742-7) 1.08 10*3/uL 0.33-0.92 H EOS x10^3 (test code = 711-2) 0.06 10*3/uL 0.03-0.39 BASO x10^3 (test code = 704-7) 0.07 10*3/uL 0.01-0.07 Lab Interpretation (test code = 64268-5) [id number] [facility]:22:00* Test Item Value Reference Range Interpretation Comme nts POCT PREG (test code = 1605) Negative On board controls acceptable with C Line (test code = 3574) Present POCT PREG LOT # (test code = 3575) [id number] POCT PREG TEST DATE ( test code = 3576) 08/27/2020 Lab Interpretation (test cod e = 86703-9) Normal [facility] Notes Date/Time Note Provider Source 2024-07-09 22:28:00 [facility] ([facility]) EMERGENCY PROVIDER REPORT REPORT#:[id number] REPORT STATUS: Signed DATE:07/09/24 TIME: 2227 PATIENT: ANGEL JACKSON UNIT #: [id number] ROOM/BED: : 00 AGE: 24 SEX:F PCP PHYS: No Primary or Family Physician SERVICE AUTHOR: Biju Daniel MD REP SRV REP SRV TM: 222 * ALL edits or amendments must be made on the electronic/computer document * HPI-Rash/Abscess/Cellulitis General Initial Greet Date/Time 07/09/242119 Presentation Chief Complaint Abscess Free Text HPI Notes Free Text HPI Notes 24-year-old female presents to the ED with complaints of right axillary abscess. For the last 2 days. Patient states she does get swelling in the armpit area. Which resolved on its own. Patient states no recent shaving. No fever no nausea no vomiting Risk-Rash/Abscess/Cellulitis ALT-70 Score ALT-70 Score Response Value Legs Asymmetric No (0) 0 Age 70 or Older No (0) 0 Elev WBC >=10,000 No (0) 0 Elev Pulse >=90bpm No (0) 0 Total 0 Review of Systems ROS Statements All systems rev neg except as marked. Past Medical History - Adult Stated Complaint PAINFUL BOIL Allergies Coded Allergies: No Known Allergies (07/09/24) Calculated Suicide Risk (nurs) No risk Smoking status for patients 13 years old or older: Never Smoker Physical Exam Vital Signs Vital Signs First Documented: Result Date Time Pulse Ox 98 07/09 2125 B/P 151/96 07/09 2125 B/P Mean 114 07/09 2125 O2 Delivery Room air 07/09 2125 Temp 97.5 07/09 2125 Pulse 90 07/09 2125 Resp 18 07/09 2125 Last Documented: Result Date Time Pulse Ox 98 07/09 2125 B/P 151/96 07/09 2125 B/P Mean 114 07/09 2125 O2 Delivery Room air 07/09 2125 Temp 97.5 07/09 2125 Pulse 90 07/09 2125 Resp 18 07/09 2125 Review of Vital Signs Reviewed Focused PE General/Const General/Const Awake, Alert, Well appearing Ears/Nose/Throat Ears/Nose/Throat Airway patent, Mucous membranes moist, Pharynx NL Resp/Chest Respiratory/Chest Breath sounds NL, Breath sounds = bilat, No respiratory distress, No rales, No rhonchi, No wheezing Cardiovascular Cardiovascular Heart rate NL, Regular rhythm, Heart sounds NL, Peripheral circulation NL MS Upper Extrem Upper Extremity/MS Inspection NL, No swelling, Non-tender, No erythema MS Lower Extrem Lower Ext/Pelvis/MS Inspection NL, No swelling, Non-tender, No erythema, Vascular intact, No edema Skin Text/Dict Notes Right upper axillary abscess moderate induration and fluctuance. Measuring about 3 cm x 3 cm Neurologic Neurologic Oriented X3, Speech NL, No motor deficits, No sensory deficits Interpretation Diagnostics Point of Care Testing Pulse Oximetry Pulse Ox % 98 On: Room air Interpretation Interpreted by me, Pulse oximetry normal Sonography US Soft Tissue/MS Exam Performed by ED physician Exam Interpreted by Interpreted by me Reviewed by ED physician Indication Swelling, Redness, Pain Views Skin subcut tissue, Muscle Findings: Skin and SubQ Tissue Tissue thickness NL, Echogenicity NL, Cobblestoning NL, SubQ collection present Procedures Incis Drainage Abscess #1 Time Spent (minutes) 15 Procedure Performed by ED physician Consent/Setup/Site Prep Verified correct patient, Informed consent provided, Time-out performed, Hand hygiene observed, Stand sterile technique, Standard surgical scrub, Sterile drapes applied Location of Abscess Right upper axillary area Skin Preparation Agent Alcohol, Betadine, Normal saline Local Anesthesia Lidocaine 1% Incised Abscess with #15 scalpel Depth of Incision Skin, Subcutaneous Pus Drained Medium, Purulent discharge, Abscess probed, Loculations broken up Irrigation Yes, Copious Estimated Blood Loss (mL) 3 Post-Procedure/Complications Packing placed, Dressing applied, No complications, Condition improved, Tolerated procedure well, Patient stable Re-Evaluation MDM Free Text MDM Notes Free Text MDM Notes Abscess drained packed. Right axillary Re-Evaluation/Progress Re-Evaluation/Progress Re-Eval Status Improved Exam Post Tx - General Active, Alert, Appears non-toxic Exam Post Tx - Sys Review Lungs clear Rash Adult MDM Note The patient is now resting comfortably and feels better, is alert, is not toxic, and is in no distress. The patient has a normal mental status and is neurologically intact. The rash does not have petechiae or purpura. There are no mucous membrane lesions, no signs of abscess, and no bullae. The patient appears well, has no fever, altered mental status or signs of systemic toxicity. The history, exam, diagnostic testing (if any) and current condition do not demonstrate signs of sepsis, [place] Spotted Fever, meningitis, meningococcemia, Lyme disease, toxic shock syndrome or other significant systemic illness requiring further treatment, testing or consultation in the emergency department. The vital signs have been stable. The patient's condition is stable and appropriate for discharge. The patient will pursue further outpatient evaluation with the primary care physician or other designated or consulting physician as indicated in the discharge instructions. ED Course Medication(s) Ordered Medication(s) Ordered: Anti-Infective Agents Sig/Beverly Start time Last Medication Dose Route Stop Time Status Admin Cephalexin 500 MG X1ED STA 07/09 2138 DC 07/09 PO 07/09 Cardiovascular Drugs Sig/Beverly Start time Last Medication Dose Route Stop Time Status Admin Lidocaine HCl 30 ML X1ED STA 07/09 2152 DC 07/09 IM 07/09 2153 215 Central Nervous System Agents Sig/Beverly Start time Last Medication Dose Route Stop Time Status Admin Acetaminophen 650 MG X1ED STA 07/09 2138 DC 07/09 PO 07/09 Ketorolac 15 MG X1ED STA 07/09 2138 DC 07/09 Tromethamine IM 07/09 Electrolytic, Caloric, And Davide Sig/Beverly Start time Last Medication Dose Route Stop Time Status Admin Sodium Chloride 250 ML X1ED STA 07/09 2138 DC 07/09 IRR 07/09 2140 2144 Patient Discharge Departure Vital Signs/Condition Vital Signs First Documented: Result Date Time Pulse Ox 98 07/09 2125 B/P 151/96 07/09 2125 B/P Mean 114 07/09 2125 O2 Delivery Room air 07/09 2125 Temp 97.5 07/09 2125 Pulse 90 07/09 2125 Resp 18 07/09 2125 Last Documented: Result Date Time Pulse Ox 98 07/09 2125 B/P 151/96 07/09 2125 B/P Mean 114 07/09 2125 O2 Delivery Room air 07/09 2125 Temp 97.5 07/09 2125 Pulse 90 07/09 2125 Resp 18 07/09 2125 All vital signs available at the time of this entry have been reviewed. Condition Stable, Improved Clinical Impression Clinical Impression Primary Impression: Armpit abscess Secondary Impressions: Abscess of axilla, right Disposition Decision Discharge )( Discharged to Home Yes )( Time 2228 )( Date 07/09/24 Discharge/Care Plan Counseled Regarding Diagnosis, Lab results, Imaging studies, Need for follow-up, When to return to ED (Auto) Prescriptions Current Visit Scripts SULFAMETHOXAZOLE/TMP (BACTRIM DS 800/160 MG) 1 TAB PO Q12H SULFAMETHOXAZOLE/TMP (BACTRIM DS 800/160 MG) 1 TAB PO Q12H #14 TABS UNTIL FINISHED CEPHALEXIN (KEFLEX) 500 MG PO Q12H CEPHALEXIN (KEFLEX) 500 MG PO Q12H #20 CAPS ACETAMINOPHEN/CODEINE (TYLENOL WITH CODEINE #3 300/30 MG) 1 TAB PO Q4H PRN PRN ACUTE PAIN ACETAMINOPHEN/CODEINE (TYLENOL WITH CODEINE #3 300/30 MG) 1 TAB PO Q4H PRN PRN ACUTE PAIN #15 TABS Prescriptions Reviewed Risks, Benefits, Alternative treatment Patient Instructions ED Abscess, Incision And Drainage Additional Instructions Packing dressing recommended to be removed in the next 24 to 48 hours. Monitor for any signs of redness swelling return to the ED for further evaluation and treatment Referrals Provider Referral: Jaspreet Sullivan MD Address: [address] [place] [address] [address] [place] [address] Provider Referral: Lorena Segura MD Address: [address] [place] [address] [address] [place] [address] Provider Referral: Nishant Clemente MD Address: [address] [place] [address] [address] [place] [address] Departure Forms WORK/SCHOOL EXCUSE-CAREGIVER 2 Discharge Note I have spoken with the patient and/or caregivers. I have explained the patient's condition, diagnoses and treatment plan based on the information available to me at this time. I have answered the patient's and/or caregiver's questions and addressed any concerns. The patient and/or caregivers have as good an understanding of the patient's diagnosis, condition and treatment plan as can be expected at this point. The vital signs have been stable. The patient's condition is stable and appropriate for discharge from the emergency department. The patient will pursue further outpatient evaluation with the primary care physician or other designated or consulting physician as outlined in the discharge instructions. The patient and/or caregivers are agreeable to this plan of care and follow-up instructions have been explained in detail. The patient and/or caregivers have received these instructions in written format and have expressed an understanding of the discharge instructions. The patient and/or caregivers are aware that any significant change in condition or worsening of symptoms should prompt an immediate return to this or the closest emergency department or a call to 911. at 2048 [facility] #:[phone] END OF REPORT [facility]ACL"
[2025-03-19 10:31] LABS: Sqamous Epithelial <5 /HPF (None Seen); Urine Crystals Unidentified Few /HPF (None Seen); Urine Culture Reflex Order NOT NEEDED; Urine Microscopic Reflex YN ORDER UMIC; Urine Yeast (Budding) Trace /HPF (None Seen)
[2025-03-19 11:03] LABS: Absolute Lymphocytes (CBC) 1.7 K/uL (0.7-4.9); Hematocrit 33.9 % (36.0-45.0); Hemoglobin 10.9 g/dL (12.0-15.0); MCH 26.6 pg (27.0-35.0); MCHC 32.0 g/dL (32.0-36.0); MCV 83.2 fL (80-100); MPV 7.2 fL (7.6-11.3); Nucleated RBC Absolute Count 0.0 (0-0); Nucleated Red Blood Cells % 0.1 % (0-0); RBC Red Blood Cell Count 4.08 M/uL (3.86-4.86); White Blood Count 7.10 thou/uL (4.3-10.9)
[2025-03-19 11:20] LABS: ALT/SGPT 25 U/L (13-56); Albumin 3.1 g/dL (3.4-5.0); Albumin/Globulin Ratio 0.9 (1.1-1.8); Alkaline Phosphatase 58 U/L (45-117); Anion Gap 6.8 mEq/L (5.0-15.0); BUN Blood Urea Nitrogen 10 mg/dL (7-18); Globulin 3.5 g/dL (2.3-3.5); Glucose Level 114 mg/dL (74-106); Lipase 28 U/L (13-75); Potassium 3.8 mEq/L (3.5-5.1)
[2025-03-19 11:22] LABS: AST/SGOT < 10 U/L (15-37)
--- NOTE | 2025-03-19 11:57 | RAD REPORT ---
EXAMINATION: CT ABDOMEN AND PELVIS WITH CONTRAST CLINICAL INDICATION: suprapubic pain, dysuria TECHNIQUE: CT abdomen and pelvis was performed, after the administration of IV contrast, as per [facility] protocol. Axial, sagittal and coronal reconstructions were obtained. One or more of the following dose reduction techniques were used: Automated exposure control, adjustment of the mA and k V according to patient size, and iterative reconstruction. Unless otherwise specified, incidental findings do not require dedicated imaging follow-up. COMPARISON: 07/05/2024 FINDINGS: LOWER CHEST: The visualized lung bases are clear. LIVER: Normal in size and contour. No focal lesion. Grossly unremarkable gallbladder. SPLEEN: Normal size. No focal lesion. PANCREAS: No mass, ductal dilation, or maggie-pancreatic fluid. ADRENALS: Normal; no mass. KIDNEYS: Normal size and contour. No hydronephrosis. GASTROINTESTINAL TRACT: No evidence of free air, significant intra-abdominal free fluid, bowel obstru ction or abscess. APPENDIX: Normal appendix. LYMPH NODES: No lymphadenopathy. MUSCULOSKELETAL: Mild multilevel spinal degenerative changes. ADDITIONAL FINDINGS: Small fat-containing umbilical hernia. IMPRESSION: No acute or concerning abnormalities seen in the abdomen or pelvis.
--- NOTE | 2025-03-19 12:36 | EDPHYS ---
Physician Documentation [facility] Name: Merline Rose Age: 25 yrs Sex: Female : 2000 Arrival Date: 03/19/2025 Time: 09:52 Bed 7 Private MD: ED Physician Papi Bosch HPI: 03/19 10:15 This 25 yrs old Black Female presents to ER via Ambulatory with complaints of possible rn uti. 10:15 Patient reports 3 to 4 days of urinary symptoms. Reports dysuria and burning sensation. rn Reports last night has subjective fever and chills. Denies abdominal pain. No vomiting or diarrhea. No upper back pain. Denies cough, congestion, runny nose. No shortness of breath. Patient started taking an old amoxicillin prescription, felt like she was getting better but then had chills today so came in for evaluation.. 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 - Infectious Disease History:: Denies. - Family history:: not pertinent. - Hospitalizations: : No recent hospitalization is reported. - Social history:: Smoking status: Patient denies any tobacco usage or history of. ROS: 10:17 Constitutional: Negative for fever, positive for chills Cardiovascular: Negative for rn chest pain, palpitations, and edema, Respiratory: Negative for shortness of breath, cough, wheezing, and pleuritic chest pain, Abdomen/GI: Negative for abdominal pain, nausea, vomiting, diarrhea, and constipation, Back: Negative for injury and pain, : Positive for dysuria and increased urinary frequency MS/Extremity: Negative for injury and deformity, Skin: Negative for injury, rash, and discoloration, Neuro: Positive for generalized malaise Exam: 10:17 Constitutional: This is a well developed, well nourished patient who is awake, alert, rn and in no acute distress. Ambulatory to room and bathroom without assistance or difficulty. Head/Face: Normocephalic, atraumatic. Cardiovascular: Regular rate and rhythm. No pulse deficits. Respiratory: No increased work of breathing, no retractions or nasal flaring. Abdomen/GI: Soft, non-tender, negative Campbell, no peritoneal signs. No right lower quadrant tenderness. No masses. Vital Signs: 10:00 BP 138 / 76; Pulse 82; Resp 18; Pulse Ox 98% on R/A; nh2 10:09 BP 150 / 100; Pulse 88; Resp 16; Temp 98.7; Pulse Ox 100% ; Weight 129.27 kg; Height 5 hb ft. 5 in. ; Pain 4/10; 11:06 BP 106 / 69; Pulse 88; Resp 17; Pulse Ox 100% on R/A; nh2 12:00 BP 129 / 79; Pulse 77; Resp 17; Pulse Ox 100% on R/A; nh2 12:42 BP 124 / 76; Pulse 74; Resp 16; Pulse Ox 98% on R/A; Pain 0/10; iw 10:09 Body Mass Index 47.43 (129.27 kg, 165.1 cm) hb 10:09 Pain Scale: Adult hb 12:42 Pain Scale: Adult iw MDM: 09:56 Medical Screening Exam initiated rn 12:34 Differential diagnosis: UTI, kidney stone, pyelonephritis. Data reviewed: vital signs, rn nurses notes, lab test result(s), radiologic studies, CT scan, and as a result, I will discharge patient. Independent interpretation of the following test(s) in the Emergency Department CT Scan: My interpretation is CT abdomen pelvis images negative for kidney stone or urinary stone per my interpretation.. Counseling: I had a detailed discussion with the patient and/or guardian regarding the historical points, exam findings, and any diagnostic results supporting the discharge/admit diagnosis, lab results, radiology results, the need for outpatient follow up, to return to the emergency department if symptoms worsen or persist or if there are any questions or concerns that arise at home. Special discussion: I discussed with the patient/guardian in detail that at this point there is no indication for admission to the hospital. It is understood, however, that if the symptoms persist or worsen the patient needs to return immediately for re-evaluation. 03/19 10:15 Order name: UA Rfx Daniel Cult if indicated; Complete Time: 10: rn 03/19 10:15 Order name: Test, Urine; Complete Time: : rn 03/19 10:41 Order name: CBC with Diff; Complete Time: 11: rn 03/19 10:41 Order name: CMP; Complete Time: 11: rn 03/19 10:41 Order name: Lipase; Complete Time: 11: rn 03/19 10:41 Order name: CT Abd/Pelvis - IV Contrast Only; Complete Time: 12:09 rn 03/19 10:41 Order name: IV Saline Lock; Complete Time: 11:03 rn 03/19 10:41 Order name: Labs collected and sent; Complete Time: 11:03 rn Administered Medications: No medications were administered Disposition Summary: 03/19/25 12:35 Discharge Ordered Notes: Location: Home rn Problem: new rn Symptoms: have improved rn Condition: Stable rn Diagnosis - UTI/ Urinary tract infection, site not specified rn Followup: rn - With: Private Physician - When: As needed - Reason: Recheck today's complaints, Re-evaluation by your physician Discharge Instructions: - Discharge Summary Sheet rn - Urinary Tract Infection, Adult rn Forms: - Medication Reconciliation Form rn - Antibiotic rn patient care - Prescription Opioid Use rn - Patient Portal Instructions rn - Leadership Thank You Letter rn Prescriptions: - Pyridium 200 mg Oral Tablet - take 1 tablet ORAL route every 8 hours for 3 days; 9 tablet; Refills: 0, rn Product Selection Permitted - Cipro 500 mg Oral Tablet - take 1 tablet ORAL route every 12 hours for 7 days; 14 tablet; Refills: 0, rn Product Selection Permitted Signatures: Dispatcher [employer] EDMS Papi Bosch MD MD rn Baxter, Heather, RN RN hb Hernandez Jr, Noel, RN RN nh2 Corrections: (The following items were deleted from the chart) 10:17 10:15 Patient reports 3 to 4 days of urinary symptoms. Reports dysuria and burning rn sensation. Reports last night has subjective fever and chills.. rn 10:17 10:15 Patient reports 3 to 4 days of urinary symptoms. Reports dysuria and burning rn sensation. Reports last night has subjective fever and chills. Denies abdominal pain. No vomiting or diarrhea. No upper back pain. Denies cough, congestion, runny nose. No shortness of breath.. rn 10:41 10:41 CBC+H.LAB.BRZ ordered. EDMS EDMS 10:41 10:41 COMPREHENSIVE METABOLIC PANEL+C.LAB.BRZ ordered. EDMS EDMS 10:41 10:41 LIPASE+C.LAB.BRZ ordered. EDMS EDMS 10:42 10:42 Abdomen Pelvis W Con+CT.RAD.BRZ ordered. EDMS EDMS
--- NOTE | 2025-03-19 12:36 | ER ---
Nurse's Notes [facility] Name: Merline Rose Age: 25 yrs Sex: Female : 2000 Arrival Date: 03/19/2025 Time: 09:52 Bed 7 Private MD: Diagnosis: UTI/ Urinary tract infection, site not specified Presentation: 03/19 10:09 Chief complaint: Dysuria and suprapubic pain x 10 days, abdominal pain, malaise, and hb generalized weakness x 2-3 days. Coronavirus screen: At this time, the client does not indicate any symptoms associated with coronavirus-19. Ebola Screen: No symptoms or risks identified at this time. Initial Sepsis Screen: Does the patient meet any 2 criteria? No. Patient's initial sepsis screen is negative. Does the patient have a suspected source of infection? No. Patient's initial sepsis screen is negative. Risk Assessment: Do you want to hurt yourself or someone else? Patient reports no desire to harm self or others. Onset of symptoms was March 09, 2025. 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 - Infectious Disease History:: Denies. - Family history:: not pertinent. - Hospitalizations: : No recent hospitalization is reported. - Social history:: Smoking status: Patient denies any tobacco usage or history of. Screenin:28 [facility] ED Fall Risk Assessment (Adult) History of falling in the last 3 months, nh2 including since admission No falls in past 3 months (0 pts) Confusion or Disorientation No (0 pts) Intoxicated or Sedated No (0 pts) Impaired Gait No (0 pts) Mobility Assist Device Used No (0 pt) Altered Elimination No (0 pt) Score/Fall Risk Level 0 - 2 = Low Risk Oriented to surroundings, Maintained a safe environment, Educated pt \T\ family on fall prevention, incl call for assistance when getting out of bed, Assessed \T\ reinforced patient's understanding of fall precautions. Abuse screen: Denies threats or abuse. Denies injuries from another. Nutritional screening: No deficits noted. Tuberculosis screening: No symptoms or risk factors identified. Assessment: 10:26 General: Appears uncomfortable, Behavior is calm, cooperative, appropriate for age, nh2 Reports feeling ill for > 3 days, fatigue for. Pain: Complains of pain in suprapubic region Pain does not radiate. Pain currently is 4 out of 10 on a pain scale. Quality of pain is described as aching, Pain began 10 days ago Is continuous. Neuro: Level of Consciousness is awake, alert, obeys commands, Oriented to person, place, time, situation, Reports weakness in generalized Denies dizziness, headache. Cardiovascular: Denies chest pain, Patient's skin is warm and dry. Respiratory: Airway is patent Trachea midline Respiratory effort is even, unlabored, Respiratory pattern is regular, symmetrical, Denies cough, shortness of breath. GI: Reports diarrhea, nausea. GI: Abdomen is round obese, Bowel sounds present X 4 quads. Abd is soft and non tender X 4 quads. : Reports burning with urination, urinary frequency. EENT: No signs and/or symptoms were reported regarding the EENT system. Derm: Skin is intact, Skin is dry, Skin is normal, Skin temperature is warm. Musculoskeletal: Range of motion: intact in all extremities. 11:15 Reassessment: Patient and/or family updated on plan of care and expected duration. Pain nh2 level reassessed. Patient is alert, oriented x 3, equal unlabored respirations, skin warm/dry/pink. 11:25 Reassessment: pt transferred to CT via wheelchair. nh2 Vital Signs: 10:00 BP 138 / 76; Pulse 82; Resp 18; Pulse Ox 98% on R/A; nh2 10:09 BP 150 / 100; Pulse 88; Resp 16; Temp 98.7; Pulse Ox 100% ; Weight 129.27 kg; Height 5 hb ft. 5 in. ; Pain 4/10; 11:06 BP 106 / 69; Pulse 88; Resp 17; Pulse Ox 100% on R/A; nh2 12:00 BP 129 / 79; Pulse 77; Resp 17; Pulse Ox 100% on R/A; nh2 12:42 BP 124 / 76; Pulse 74; Resp 16; Pulse Ox 98% on R/A; Pain 0/10; iw 10:09 Body Mass Index 47.43 (129.27 kg, 165.1 cm) hb 10:09 Pain Scale: Adult hb 12:42 Pain Scale: Adult iw ED Course: 09:56 Patient arrived in ED. ts1 09:56 Papi Bosch MD is Attending Physician. rn 10:10 Triage completed. 10:15 Ankit Almonte Jr, RN is Primary Nurse. nh2 10:26 Test, Urine Sent. nh2 10:26 UA Rfx Daniel Cult if indicated Sent. nh2 10:28 No provider procedures requiring assistance completed. nh2 10:28 Patient has correct armband on for positive identification. Bed in low position. Call nh2 light in reach. Side rails up X 1. Provided Education on: using call light for assistance. 10:30 Arm band placed on left wrist. nh2 10:50 Inserted saline lock: 20 gauge in right antecubital area, using aseptic technique. nh2 Blood collected. Flushed with 10 mL NS. 11:53 CT Abd/Pelvis - IV Contrast Only In Process Unspecified. EDMS 12:43 IV discontinued, intact, bleeding controlled, No redness/swelling at site. Pressure iw dressing applied. Administered Medications: No medications were administered Medication: 12:00 VIS not applicable for this client. nh2 Outcome: 12:35 Discharge ordered by . rn 12:43 Discharged to home ambulatory, iw 12:43 Condition: good 12:43 Discharge instructions given to patient, Instructed on discharge instructions, follow up and referral plans. Demonstrated understanding of instructions, follow-up care, medications, Prescriptions given X 2, 12:43 Patient left the ED. iw Signatures: Dispatcher [employer] EDMS Gabbi Durant RN RN Papi Bosch MD MD rn Baxter, Heather, RN RN Sanjuana Mane PAS PAS ts1 Ankit Almonte Jr, RAUL RN nh2 Corrections: (The following items were deleted from the chart) 12:31 10:26 GI: Abdomen is round obese, Bowel sounds present X 4 quads. nh2 nh2
[2025-03-19 12:50] VITALS: TEMP 98.7
[2025-03-19 12:55] VITALS: BP 124/76; O2SAT 98
== END 2025-03-19 12:43 | disposition home or self-care (01) ==
LOC: ER 09:52
DX: N39.0 Urinary tract infection, site not specified (principal)
CPT/HCPCS: 85025; 81001; 36415; 81025; 83690; 80053; 74177; 99284; Q9967